=== PATIENT | male | born 1980 | race Caucasian/White ===

== ENCOUNTER 2019-02-17 17:06 | Emergency (ER) | payer OTHER ==
[~2019-02-17] VITALS: Ht 175.3 cm; Wt 81.7 kg
[2019-02-17] MEDS ORDERED: SUBOXONE 8 MG-1 EACH SL (17:40)
== END 2019-02-17 17:54 | disposition home or self-care (01) ==
LOC: ER 17:06
DX: F11.23 Opioid dependence with withdrawal (principal); Z76.0 Encounter for issue of repeat prescription
CPT/HCPCS: 99281